=== PATIENT | female | born 2000 | race Caucasian/White ===

== ENCOUNTER 2021-07-16 23:02 | Emergency (ER) | payer SELFPAY ==
[~2021-07-16] VITALS: Ht 175.3 cm; Wt 59.0 kg
[2021-07-16 23:10] VITALS: BP_SYST 142
[2021-07-16] MEDS ORDERED: NACL 0.9% 1,000 ML IV ONE (23:45)
[2021-07-17 00:32] LABS: BASOPHILS # (AUTO) 0.1 K/uL (0.0-0.2); BASOPHILS % (AUTO) 0.9 % (0.0-2.0); EOSINOPHILS # (AUTO) 0.2 K/uL (0.0-0.4); EOSINOPHILS % (AUTO) 2.9 % (0.0-4.0); HEMATOCRIT 42.2 % (36-48); LYMPHOCYTES # (AUTO) 2.5 K/uL (1.0-5.5); LYMPHOCYTES % (AUTO) 36.3 % (20.5-51.5); MEAN CORPUSCULAR HEMOGLOBIN 28 pg (27-31); MEAN CORPUSCULAR HGB CONC 33 % (32-36); MEAN CORPUSCULAR VOLUME 84 fL (79.0-98.0); MONOCYTES # (AUTO) 0.7 K/uL (0.0-1.0); MONOCYTES % (AUTO) 10.2 % (1.7-9.3); NEUTROPHILS # (AUTO) 3.4 K/uL (1.8-7.7); NEUTROPHILS % (AUTO) 49.7 % (40.0-70.0); PLATELET COUNT (AUTO) 195 K/uL (130-430); RED BLOOD CELL COUNT(AUTO) 4.99 MIL/uL (4.2-6.2); RED CELL DISTRIBUTION WIDTH 13.3 % (9.0-15.0); WHITE BLOOD COUNT (AUTO) 6.8 K/uL (4.8-10.8)
[2021-07-17 00:34] LABS: CALCIUM 9.6 mg/dL (8.4-11.0); CREATININE 0.7 mg/dL (0.55-1.30); POTASSIUM 3.8 mmol/L (3.5-5.1)
[2021-07-17 00:39] LABS: ALBUMIN 4.8 g/dL (3.4-4.8); TOTAL BILIRUBIN 0.3 mg/dL (0.0-1.0)
[2021-07-17 02:41] VITALS: BP_SYST 109
== END 2021-07-17 02:41 | disposition home or self-care (01) ==
LOC: SED 23:02
DX: F41.9 Anxiety disorder, unspecified (principal)
CPT/HCPCS: 36415; 71045; 80053; 85025; 93005; 96360; 99285; J7030

== ENCOUNTER 2021-12-22 13:55 | Emergency (ER) | payer OTHER ==
[~2021-12-22] VITALS: Ht 175.3 cm; Wt 66.7 kg
--- NOTE | 2021-12-22 13:55 | NUR ---
Pt brought by self, A&Ox4, pt presents to ER with abdominal pain,increasing after eating ,also c/o bright red in the stool, skin pink and warm, cap refill <3, VSS.
[2021-12-22 14:15] VITALS: BP_SYST 121
--- NOTE | 2021-12-22 14:30 | NUR ---
Dr Marquez evaluating patient at bedside
[2021-12-22 16:19] LABS: BILIRUBIN,URINE NEGATIVE (NEGATIVE); BLOOD, URINE NEGATIVE (NEGATIVE); CLARITY/URINE CLEAR (CLEAR); COLOR,URINE YELLOW (YELLOW); GLUCOSE,URINE NEGATIVE (NEGATIVE); KETONES,URINE NEGATIVE (NEGATIVE); LEUKOCYTE ESTERASE ,URINE NEGATIVE (NEGATIVE); NITRITE, URINE NEGATIVE (NEGATIVE); PROTEIN URINE NEGATIVE (NEGATIVE); UROBILINOGEN,URINE 0.2 (0.2-1.0)
[2021-12-22 16:21] LABS: BASOPHILS # (AUTO) 0.1 K/uL (0.0-0.2); BASOPHILS % (AUTO) 1.2 % (0.0-2.0); EOSINOPHILS # (AUTO) 0.1 K/uL (0.0-0.4); EOSINOPHILS % (AUTO) 2.3 % (0.0-4.0); HEMATOCRIT 42.7 % (36-48); HEMOGLOBIN 14.1 g/dL (12.0-16.0); LYMPHOCYTES # (AUTO) 1.8 K/uL (1.0-5.5); LYMPHOCYTES % (AUTO) 30.8 % (20.5-51.5); MEAN CORPUSCULAR HEMOGLOBIN 28 pg (27-31); MEAN CORPUSCULAR HGB CONC 33 % (32-36); MEAN CORPUSCULAR VOLUME 85 fL (79.0-98.0); MONOCYTES # (AUTO) 0.5 K/uL (0.0-1.0); MONOCYTES % (AUTO) 8.1 % (1.7-9.3); NEUTROPHILS # (AUTO) 3.4 K/uL (1.8-7.7); NEUTROPHILS % (AUTO) 57.6 % (40.0-70.0); PLATELET COUNT (AUTO) 210 K/uL (130-430); RED BLOOD CELL COUNT(AUTO) 5.06 MIL/uL (4.2-6.2); RED CELL DISTRIBUTION WIDTH 13.8 % (9.0-15.0)
[2021-12-22 16:34] LABS: CREATININE 0.78 mg/dL (0.55-1.30)
[2021-12-22 16:48] LABS: ALBUMIN 4.6 g/dL (3.4-4.8); TOTAL BILIRUBIN 0.5 mg/dL (0.0-1.0)
[2021-12-22] MEDS ORDERED: SULF1TAB48 PO (17:01)
[2021-12-22 17:07] VITALS: BP_SYST 121
--- NOTE | 2021-12-22 17:11 | NUR ---
Note sundeep in EDM - 12/22/21 at 1713 by [email or web address] Pt brought by self, A&Ox4, pt presents to ER with abdominal pain after eating ,also c/o bright red in the stool, skin pink and warm, cap refill <3, VSS.
--- NOTE | 2021-12-22 17:13 | NUR ---
Patient given written and verbal discharge instructions and verbalizes understanding. ER MD discussed with patient the results and treatment provided. Patient in stable condition. ID arm band removed. Rx of Bactrim given. Patient educated on pain management and to follow up with PMD. Pain Scale 2/10. Opportunity for questions provided and answered. Medication side effect fact sheet provided.
== END 2021-12-22 17:07 | disposition home or self-care (01) ==
LOC: SED 13:55
DX: A07.1 Giardiasis [lambliasis] (principal); R10.30 Lower abdominal pain, unspecified; R19.7 Diarrhea, unspecified; Z79.899 Other long term (current) drug therapy
CPT/HCPCS: 36415; 76376; 80053; 81003; 81025; 83605; 85025; 87040; 99284